=== PATIENT | male | born 1960 | race Caucasian/White ===

== ENCOUNTER → 2023-07-03 11:13 | Outpatient (REF) | payer BC, SELFPAY | LOC: RCS 11:13 | PROVIDERS: ATTENDING PHYSICIAN Orthopaedic Surgery; FAMILY PHYSICIAN Family Medicine | DX: Z01.818 Encounter for other preprocedural examination (principal) | CPT/HCPCS: 93005 ==

== ENCOUNTER 2023-08-19 15:39 | Emergency (ER) | payer BC, SELFPAY ==
[2023-08-19 15:42] VITALS: BP 158/78
[2023-08-19 16:01] LABS: % Basophils 0.5 % (0-2); % Eosinophils 1.1 % (0-6); % Immature Granulocytes 0.4 % (0-0.5); % Monocytes 7.8 % (1.7-9.3); % Neutrophils 73.2 % (42.2-75.2); Absolute Eosinophils 0.1 10^3/uL (0-0.7); Absolute Lymphocytes 1.3 10^3/uL (1.2-3.4); Absolute Monocytes 0.6 10^3/uL (0.1-0.6); Absolute Neutrophils 5.8 10^3/uL (1.4-6.5); Hematocrit 38.2 % (39.0-52.0); Hemoglobin 12.8 g/dL (13.0-18.0); Mean Corp Hgb Conc. 33.5 g/dL (33.0-37.0); Mean Corpuscular Hgb 29.2 pg (27.0-31.0); Mean Corpuscular Volume 87.2 fL (80.0-94.0); Mean Platelet Volume 9.8 fL (7.4-10.4); Nucleated Red Blood Cells % 0 % (-); Platelet Count 246 10^3/uL (130-400); Red Blood Cell Count 4.38 10^6/uL (4.70-6.10); Red Cell Dist. Width 14.1 % (11.5-14.5); White Blood Cell Count 7.9 10^3/uL (4.8-10.8)
[2023-08-19 16:15] LABS: ALT (SGPT) 41 U/L (0-50); AST (SGOT) 28 U/L (17-59); Albumin 4.3 g/dl (3.5-5.0); Alkaline Phosphatase 107 U/L (38-126); Blood Urea Nitrogen 17 mg/dl (9-20); Calcium 9.3 mg/dl (8.4-10.2); Carbon Dioxide 28 mmol/L (22-30); Chloride 104 mmol/L (98-107); Glucose 111 mg/dl (70-99); Sodium 138 mmol/L (135-145); Total Bilirubin 1.3 mg/dl (0.2-1.3); eGFR > 60.00
[2023-08-19 20:33] VITALS: BMI 28.2
[2023-08-19 20:35] VITALS: BP 159/78
[2023-08-19] MEDS: TYLENOL 1000 MG PO (20:48)
--- NOTE | 2023-08-19 21:40 | ED.GENMED ---
History of Present Illness
General
Chief Complaint: DVT/Possible Blood Clot
Source: patient
Exam Limitations: none
Time Seen by Provider: 08/19/23 20:48
Travel History
Have you had any contact with someone who has COVID-19?: No
Do you have any symptoms of coronavirus? Fever > 100 degrees, chills, cough, shortness of breath, sore throat, loss of taste or smell, muscle aches, or headache?: No
History of Present Illness
History of Present Illness:
This is a 63 year old male that comes in with c/o right leg swelling. State that he had his right hip replaced [address] Lauren. States that he had talked with them and gave them his symptoms and he was told to get an US. States that he
c/o swelling below the knee and around the ankle. States that he also felt it was a little red and that there was very slight Discomfort. Patient was called and told to come to the ER after the Ultrasound. Denies any fever, chills, chest pain, SOB,
abd pain, nausea, vomiting, diarrhea, headache, dizziness, urinary burning.
Past History
Past History
ED Past Medical History: Other (DVT right leg); Negative Asthma, HTN, Hypercholesterolemia or NIDDM
ED Past Surgical History: Orthopedic (Right hip replacement)
Social History
Tobacco: Non-smoker
Alcohol: Occasional
Personal:
Living: with family
Review of Systems
Review of Systems
All Other Systems: ROS reviewed and negative except as documented in HPI and ROS
Constitutional: Reports no symptoms; Denies fever or chills
EENT: Reports no symptoms
Respiratory: Reports no symptoms; Denies cough or trouble breathing
Cardiac: Reports no symptoms; Denies chest pain
ABD/GI: Reports no symptoms; Denies abdominal pain, nausea, vomiting or diarrhea
: Reports no symptoms; Denies dysuria, frequency or urgency
Musculoskeletal: Reports no symptoms
Skin: Reports other (Swelling of the right lower leg)
Neurological: Reports no symptoms; Denies dizzy or headache
Psychiatric: Reports no symptoms
Phy Exam
General Physical Exam
General Presentation: well appearing and no apparent distress
General age: appears stated age
General Skin: warm and dry
General Habitus: normal
General Mental: alert
General Hydration: appears well hydrated
ENT Exam
ENT Exam: TM's normal, pharynx normal and neck supple
Eye Exam
Eye Exam: EOMI
Cardiovascular Exam
Cardiovascular Exam: regular rate/rhythm and normal peripheral pulses
Pulmonary Exam
Pulmonary Exam: lungs clear, no respiratory distress, no rales, chest non tender, no crackles, no rhonchi, no wheezing and no cough
Musculoskeletal Exam
Musculoskeletal Exam: full ROM and edema (Of the right lower leg +1 pitting)
Skin Exam
Skin Exam: normal color, warm/dry, no rash, no petechia and other (Right hip incision line clean and dry. Negative for any redness)
Psychiatric Exam
Psychiatric Exam: normal mood/affect
Course
Orders/Labs/Results
Orders:
Orders
08/19/23 15:52
CMP [Comprehensive Metabolic Panel] Urgent
Complete Blood Count/With Diff Urgent
08/19/23 20:46
Acetaminophen [Tylenol] 1,000 mg .ROUTE .STK-MED ONE
08/19/23 20:47
Acetaminophen [Tylenol] 1,000 mg PO NOW STA
Abnormal Lab Results
08/19/23
15:52
RBC 4.38 L 10^6/uL
(4.70-6.10)
Hgb 12.8 L g/dL
(13.0-18.0)
Hct 38.2 L %
(39.0-52.0)
Lymphocytes % 17.0 L %
(20.5-51.1)
Glucose 111 H mg/dl
(70-99)
08/19/23 15:52
08/19/23 15:52
H/H slightly low. Glucose nonfasting.
Vital Signs
Initial and Last Documented VS:
Initial Vital Signs
Temp Pulse Resp BP Pulse Ox
98.8 F 74 20 158/78 98
08/19/23 15:42 08/19/23 15:42 08/19/23 15:42 08/19/23 15:42 08/19/23 15:42
Last Documented Vital Signs
Temp Pulse Resp BP Pulse Ox
98.8 F 82 18 159/78 100
08/19/23 15:42 08/19/23 20:35 08/19/23 20:35 08/19/23 20:35 08/19/23 20:35
MDM/Problems Addressed
Differential Diagnosis Includes:
DVT
MDM/Problems Addressed:
This is a 63 year old male that comes in with c/o right lower leg swelling. States that he had the right hip replaced 3 weeks ago today. States that he started with right lower leg swelling and the Orthopedic told him to come for an US. States that
he was told to come to the ER.
Labs drawn. Spoke with Dr. Rocha from [facility] to make sure patient could go home on Eliquis. He was in agreement. Will place on Eliquis, have patient hold his aspirin. Follow up with the PCP. Return with any concerns
Chronic conditions affecting care:
NA
Acute Exacerbation and/or Progression of Chronic Illness:
NA
*Radiology
Radiology exam reviewed: radiology read reviewed (US out patient- Extensive deep venous thrombosis of the right lower extremity. )
*Pulse Oximetry
Patient hypoxic: no
*EKG
Interpreted by ED Provider?: NA
Rate: EKG- N/A
*Advertising Account Manager Interpretation
Rate: Advertising Account Manager- N/A
*Critical Care Note
Total Time (30-74mins, 75-104mins- exclusive of procedures): Not Applicable
ED Attending Note
-
Portions of this chart may have been created with voice recognition software.� Occasional wrong word or��sound alike� substitutions may have occurred due to the inherent limitations of voice recognition software.
Discharge Plan
Departure
Patient Disposition: Home (Routine Discharge)
Date of Disposition: 08/19/23
Time of Disposition: 21:56
Patient with high blood pressure during this ER visit?: Yes
Condition: Good
Covid-19: Not Applicable
Discharge Problem:
DVT (deep venous thrombosis)
Instructions: Deep Vein Thrombosis (Blood Clots in the Legs) (DC), BLOOD PRESSURE
Prescriptions:
New
Eliquis 5 mg tablet
10 mg PO BID 7 Days Qty: 28 0RF
No Action
aspirin 325 mg Tablet
325 mg PO DAILY
Theragen Tablet
1 tab PO DAILY
acetaminophen [Tylenol Extra Strength] 500 mg Tablet
1,000 mg PO BIDPRN PRN (Reason: mild pain)
Referrals:
Steve Nogueira MD [Family Provider] - Follow up in 2-3 days
Activity Restrictions/Additional Instructions:
As discussed, you Ultrasound does show you have a DVT of the right lower leg. You have been given your first dose of Eliquis here and a prescription for 7 days has been sent to your Pharmacy. After the first 7 days the dosage is decreased to 5mg
BID. Please follow up with the family doctor for a new prescription and for further evaluation. IF YOU HAVE ANY OTHER CONCERNS PLEASE RETURN TO THE EMERGENCY ROOM.
Interventions
Interventions:
*Risk Screen - Suicide Last Done: 08/19/23 15:41
*General Assessment Last Done: 08/19/23 15:41
*Neglect/Abuse Screening Last Done: 08/19/23 15:41
*ED COVID-19 Vaccine History Last Done: 08/19/23 20:39
ED- Cardiac Assessment Last Done: 08/19/23 20:37
ED- Pulmonary Assessment Last Done: 08/19/23 20:37
ED-Peripheral Vascular Assessment Last Done: 08/19/23 20:37
ED-Skin Assessment Last Done: 08/19/23 20:37
Discharge Date and Time
Print Language: CITIZEN OF [place]
[2023-08-19] MEDS: ELIQUIS 10 MG PO (22:03)
== END 2023-08-19 22:14 | disposition home or self-care (01) ==
LOC: EMR 15:39
PROVIDERS: EMERGENCY PHYSICIAN Emergency Medicine; FAMILY PHYSICIAN Family Medicine
DX: I82.401 Acute embolism and thrombosis of unspecified deep veins of right lower extremity (principal); Z86.718 Personal history of other venous thrombosis and embolism; Z96.641 Presence of right artificial hip joint
CPT/HCPCS: 99283; 80053; 85025; 93971